=== PATIENT | female | born 1995 | race Caucasian/White ===

== ENCOUNTER 2016-05-15 21:24 | Emergency (ER) | payer OTHER ==
[~2016-05-15] VITALS: Ht 165.1 cm; Wt 74.8 kg
[2016-05-15] MEDS ORDERED: MIRA3350 PO (21:37)
[2016-05-15] MEDS ORDERED: ENEMENE6 PR (21:37)
[2016-05-16 07:00] LABS: MEAN CORPUSCULAR HEMOGLOBIN 29.6 pg (27.0-33.0); MEAN CORPUSCULAR HGB CONC 33.8 g/dl (32.0-36.5); MEAN CORPUSCULAR VOLUME 87.6 fl (80.0-96.0); RED CELL DISTRIBUTION WIDTH 12.4 % (11.5-14.5); WHITE BLOOD COUNT 6.8 K/mm3 (4.0-10.0)
[2016-05-16 07:11] LABS: BASOPHILS 1 % (0-4)
[2016-05-16] MEDS ORDERED: GASTROGRAFIN SOLUTION 30ML (Q9963) PO ONE ×2 (07:15→07:30)
[2016-05-16 07:27] LABS: ALBUMIN 3.5 GM/DL (3.2-5.2); ALBUMIN/GLOBULIN RATIO 1.06 (1.00-1.93); ALKALINE PHOSPHATASE 56 U/L (45-117); ALT/SGPT 21 U/L (12-78); ANION GAP 6 MEQ/L (8-16); AST/SGOT 20 U/L (15-37); BILIRUBIN,DIRECT 0.1 MG/DL (0.0-0.2); BILIRUBIN,TOTAL 0.4 MG/DL (0.2-1.0); BLOOD UREA NITROGEN 9 MG/DL (7-18); CALCIUM LEVEL 8.7 MG/DL (8.5-10.1); CARBON DIOXIDE LEVEL 26 MEQ/L (21-32); CHLORIDE LEVEL 108 MEQ/L (98-107); CREATININE FOR GFR 0.73 MG/DL (0.55-1.02); GLOMERULAR FILTRATION RATE > 60.0 (>60); GLUCOSE, FASTING 92 MG/DL (70-105); POTASSIUM SERUM 3.8 MEQ/L (3.5-5.1); SODIUM LEVEL 140 MEQ/L (136-145); TOTAL PROTEIN 6.8 GM/DL (6.4-8.2)
--- NOTE | 2016-05-16 09:03 | REP ---
Clinical: Left lower quadrant pain. Comparison: None. Findings: Lung bases clear. Visualized heart and pericardium normal. Liver, spleen, pancreas, gallbladder, bilateral adrenal glands are normal for noncontrast evaluation. Kidneys demonstrate a 4 mm nonobstructing right renal calculus and there is no evidence for perinephric stranding, bilateral hydroureteronephrosis or obvious obstructing ureteral calculi. A solitary 2 mm calculus in the deep left carmenza pelvis most likely represents a phlebolith. The enteric system is without obstruction or acute inflammatory process. Normal appendix identified in the right lower quadrant. Pelvis demonstrates normal bladder and age-appropriate uterus/adnexa. No ascites. No free air. No obvious adenopathy. Abdominal aorta without aneurysm. Musculoskeletal structures are intact. Impression: 4 mm nonobstructing right renal calculus. No acute intra-abdominal or pelvic pathology appreciated. Signed by Buck Vora MD 05/16/2016 08:54 A
[2016-05-16] MEDS ORDERED: GOLYTELY SOLN 4000 ML BTL PO ONE (10:00)
[2016-05-16 10:12] VITALS: BP 125/67
== END 2016-05-16 10:13 | disposition home or self-care (01) ==
LOC: M ED 22:31
DX: K59.00 Constipation, unspecified (principal)
CPT/HCPCS: 74176; 80048; 80076; 85007; 85027; 99283; Q9963